=== PATIENT | female | born 1955 | race Caucasian/White ===

== ENCOUNTER → 2017-06-04 | Outpatient (CLI) | payer OTHER ==
[~2017-06-04] MED LIST: ASPI-715 PO; ATR10 PO; EZET10TA41 PO; FENO145T PO; FISH OIL1 CAP PO; FLUT10SP NS; IPRA15SP7 NS; LANS30CA63 PO; LANS30TA12 PO; LEVO-85 PO; LEVO50TA80 PO; METH4TAB66 PO; NEXIUM; NITR0.3T6 SL; OLOP30.53 NS; OXYC-865 PO; PSEU-287 PO
--- NOTE | 2017-06-05 17:32 | RADIOLOGY IMAGING REPORT ---
FACILITY: PATIENT NAME: ABIDA MARTÍNEZ : [id number] MR: [id number] V: [id number] EXAM DATE: ORDERING PHYSICIAN: JOY FLORENCE TECHNOLOGIST: Ladonna Rodriguez PROCEDURE:BILATERAL DIGITAL SCREENING MAMMOGRAM WITH CAD ASSISTED INTERPRETATION & 3D TOMOSYNTHESIS COMPARISON:Prior mammograms 06/01/16, 05/25/15, 05/15/14, 05/23/13, 05/19/13, 05/16/12. INDICATIONS:SCREENING FINDINGS: Moderately heterogeneous fibroglandular tissue is seen throughout the breasts. The parenchymal pattern has remained stable allowing for difference in mammographic technique & patient positioning. There is no evidence of malignant appearing mass, malignant appearing calcifications or other secondary sign of malignancy in either breast. DIAGNOSTIC CATEGORY 1--NEGATIVE. RECOMMENDATIONS: ROUTINE MAMMOGRAM AND CLINICAL EVALUATION. IMPRESSION: BIRADS 1: Negative No significant abnormality is seen Dictated by: Corrina Linn M.D. on 06/05/2017 at 11:29 Transcribed by: RODNEY on 06/05/2017 at 12:50 Approved by: Corrina Linn M.D. on 06/05/2017 at 17:31 [facility]
== END ==
LOC: MAMO 02:34
PROVIDERS: ATTEND Obstetrics & Gynecology
DX: Z12.31 Encounter for screening mammogram for malignant neoplasm of breast (principal)
CPT/HCPCS: 77063; 77067

== ENCOUNTER → 2017-08-27 | Outpatient (CLI) | payer OTHER ==
[~2017-08-27] MED LIST changes: -FENO145T PO; +FENO145T36 PO; -PSEU-287 PO; +PSEU120T69 PO
--- NOTE | 2017-08-27 13:48 | RADIOLOGY IMAGING REPORT ---
FACILITY: [facility] PATIENT NAME: Selena Tubbs : 1955 MR: [id number] V: [id number] EXAM DATE: ORDERING PHYSICIAN: AMY ROSA TECHNOLOGIST: Location: [facility] [place] Patient: Selena Tubbs : 1955 Visit/Account:[id number] Date of Sevice: 08/27/2017 ABD SINGLE ORGAN/QUAD/FOLLOWUP HISTORY: Pain in right lower quadrant radiating from thigh COMPARISON: None. FINDINGS: Right lower quadrant was imaged sonographically demonstrating no evidence of a focal hernia. A mass lesion nor abnormal collection were not demonstrated. The appendix was not seen. IMPRESSION: Unremarkable right lower quadrant ultrasound. If Acute appendicitis is of clinical concern CT of ab domen pelvis recommended Report Dictated By: Corrina Linn MD at 08/27/2017 1:42 PM Report E-Signed By: Corrina Linn MD at 08/27/2017 1:44 PM WSN:[id number]
== END ==
LOC: US 07:18
PROVIDERS: ATTEND Physician Assistant Medical
DX: R10.31 Right lower quadrant pain (principal)
CPT/HCPCS: 76705

== ENCOUNTER → 2017-08-30 | Outpatient (CLI) | payer OTHER ==
[~2017-08-30] MED LIST changes: +OMEP40CA48 PO
== END ==
LOC: LAB 09:36
PROVIDERS: ATTEND Otolaryngology
DX: J30.9 Allergic rhinitis, unspecified (principal)
CPT/HCPCS: 36415; 86003

== ENCOUNTER → 2017-09-13 | Outpatient (CLI) | payer OTHER ==
[~2017-09-13] MED LIST changes: +IOPAMIDOL 76% 75 ML INFUS BTL 75 ML ONE
--- NOTE | 2017-09-13 14:16 | RADIOLOGY IMAGING REPORT ---
FACILITY: [facility] - [place] PATIENT NAME: Selena Tubbs : 1955 MR: [id number] V: [id number] EXAM DATE: ORDERING PHYSICIAN: AMY ROSA TECHNOLOGIST: Location: [facility] - [place] Patient: Selena Tubbs : 1955 Visit/Account:[id number] Date of Sevice: 09/13/2017 ABDOMEN/PELVIS W/WO CONTRAST HISTORY: Right lower quadrant pain. TECHNIQUE: CT abdomen and pelvis without and with intravenous contrast. One of the following dose optimization techniques was utilized in the performance of this exam: Autom ated exposure control; adjustment of the mA and/or kV according to the patient's size; or use of an i terative reconstruction technique. Specific details can be referenced in the facility's radiology C T exam operational policy. CONTRAST: 75 mL Isovue-370 COMPARISON: None. FINDINGS: Visualized lung bases: Mild bibasilar atelectasis and/or scarring. Hepatobiliary: Negative. Spleen: Negative. Adrenals: Negative. Pancreas: Negative. Kidneys/: Possible punctate nonobstructing calculus within the inferior pole of the right kidney m easuring less than 1 mm. 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 Uterus is surgically absent. Otherwise negative. GI: Negative. Appendix is unremarkable. Vessels/spaces/nodes: Nonspecific subcentimeter inguinal and iliac chain lymph nodes. No pathologic ally enlarged lymph nodes are identified. Mild atherosclerosis. There is minimal haziness of the root of the jejunal mesentery along with numerous but normal sized l ymph nodes. Bones/soft tissues: Mild degenerative disc disease at L5-S1. Lytic focus within the L2 vertebral kiarra dy, likely representing a hemangioma. IMPRESSION: 1. No acute findings. 2. Mild haziness of the root of the jejunal mesentery along with numerous but normal sized lymph nod es. 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 3. Additional incidental/chronic findings, as above. Report Dictated By: Jaziel Ocampo MD at 09/13/2017 2:04 PM Report E-Signed By: Jaziel Ocampo MD at 09/13/2017 2:11 PM WSN:[id number]
== END ==
LOC: CT 00:28
PROVIDERS: ATTEND Physician Assistant Medical
DX: J98.11 Atelectasis (principal); N20.0 Calculus of kidney; I25.10 Atherosclerotic heart disease of native coronary artery without angina pectoris; M47.897 Other spondylosis, lumbosacral region; K65.4 Sclerosing mesenteritis
CPT/HCPCS: 36415; 74178; 82565; Q9967

== ENCOUNTER → 2017-11-14 | Outpatient (CLI) | payer OTHER ==
[~2017-11-14] MED LIST changes: +EPIN0.3P15 IM; -IOPAMIDOL 76% 75 ML INFUS BTL 75 ML ONE; +MONT10TA PO
--- NOTE | 2017-11-14 16:04 | RADIOLOGY IMAGING REPORT ---
FACILITY: [facility] PATIENT NAME: Selena Tubbs : 1955 MR: [id number] V: [id number] EXAM DATE: ORDERING PHYSICIAN: SARAY SHEA TECHNOLOGIST: Location: [facility] - [place] Patient: Selena Tubbs : 1955 Visit/Account:[id number] Date of Sevice: 11/14/2017 SINUSES MIN 3 VIEWS INDICATION: Headache. Chronic sinusitis. COMPARISON: None available. FINDINGS: Lateral, wells view, and Chacko views of the skull were obtained. The maxillary and ethmoid air cells appear well aerated bilaterally. No air-fluid levels. Frontal sin uses may be mildly underpneumatized but no air-fluid levels are seen. Sphenoid sinuses also appear we ll aerated. No acute abnormality seen. IMPRESSION: 1. Patent paranasal sinuses as described above with no air-fluid level identified. If there is cont inued clinical concern, consider computed tomography for further assessment. Report Dictated By: Dawson Vu at 11/14/2017 3:57 PM Report E-Signed By: Dawson Vu at 11/14/2017 3:59 PM WSN:[id number]
== END ==
LOC: RAD 14:35
PROVIDERS: ATTEND Otolaryngology
DX: J32.9 Chronic sinusitis, unspecified (principal)
CPT/HCPCS: 70220

== ENCOUNTER 2017-11-23 14:33 | Outpatient (RCR) | payer OTHER ==
[2017-11-26] MEDS ORDERED: IOPAMIDOL 76% 75 ML INFUS BTL 75 ML ONE (13:48)
--- NOTE | 2017-11-26 16:07 | RADIOLOGY IMAGING REPORT ---
FACILITY: [facility] - [place] PATIENT NAME: Selena Tubbs : 1955 MR: [id number] V: [id number] EXAM DATE: ORDERING PHYSICIAN: JOY GOMEZ TECHNOLOGIST: Location: [facility] Patient: Selena Tubbs : 1955 Visit/Account:[id number] Date of Sevice: 11/26/2017 EXAMINATION: CT head without IV contrast CT head with IV contrast HISTORY: Classic migraine. COMPARISON: None. TECHNIQUE: Contiguous axial images were obtained from the skull base to the vertex before and after IV contrast. Sagittal and coronal reformatted images are also submitted. CONTRAST: 75 mL of IV Isovue-370. One of the following dose optimization techniques was utilized in the performance of this exam: Autom ated exposure control; adjustment of the mA and/or kV according to the patient's size; or use of an i terative reconstruction technique. Specific details can be referenced in the facility's radiology C T exam operational policy. FINDINGS: Brain volume: Normal. Ventricles: Normal. Acute ischemic changes: None. Hemorrhage: No acute intracranial hemorrhage. Masses/edema: None. Enhancement: Normal. Ortiz-white: Negative. White matter: Normal. Vessels: Negative. Extra-axial: Negative. Calvarium/scalp: Negative. Skull base/visualized face: Negative. Visualized sinuses/orbits: Negative. IMPRESSION: Normal enhanced head CT. No intracranial mass lesion or hemorrhage. No CT evidence of acute infarct . Report Dictated By: Daisha Amezquita MD at 11/26/2017 4:01 PM Report E-Signed By: Daisha Amezquita MD at 11/26/2017 4:04 PM WSN:[id number]
== END 2017-12-28 ==
LOC: CT 14:33
PROVIDERS: ATTEND Family Medicine
DX: G43.109 Migraine with aura, not intractable, without status migrainosus (principal)
CPT/HCPCS: 36415; 70470; 82565; Q9967

== ENCOUNTER → 2018-06-14 | Outpatient (CLI) | payer OTHER ==
[~2018-06-14] MED LIST changes: +ACYC-50 PO; +ESTR42.5 PV
--- NOTE | 2018-06-14 15:31 | RADIOLOGY IMAGING REPORT ---
[place] [facility] [place] NAME: Selena Tubbs : 1955 MR: [id number] V: [id number] EXAM DATE: ORDERING PHYSICIAN: OJSE LUIS HERMAN TECHNOLOGIST: Location: [facility] Patient: Selena Tubbs : 1955 Visit/Account:[id number] Date of Sevice: 06/14/2018 DEXA Scan Clinical history: Postmenopausal screening. Comparison: DEXA scan from 04/30/2009. LUMBAR SPINE: The bone mineral density (BMD) measured from L1-L4 correlates with a Z-score of 3.4 and a T-score of 2.1 which is Normal as defined by the World Health Organization. The corresponding risk of fracture in the lumbar spine is Not increased compared with a young adult reference population. This value hameed s decrease by 5.2 % since the prior study. More than 5% change is considered significant. HIP: Bone mineral density (BMD) measured in the LEFT total hip region correlates with a Z-score 0.6 and a T-score of -0.4 which is normal as defined by the World Health Organization. The corresponding risk of fracture in the hip is Not i ncreased compared to a young adult reference population. This value has decrease by 6.3 % since the p rior study. More than 5% change is considered significant. T score left femoral neck -0.8 Bone mineral density (BMD) measured in the Femoral Neck region measures 0.926 g/cm?. IMPRESSION: 1. Lumbar spine: Normal. There has been 5.2% decrease in the bone mineral density since the previou s exam. 2. Left Total Hip: Normal. There has been 6.3% decrease in the bone mineral density since the previ ous exam. 3. Femoral Neck: Bone Mineral Density is 0.926 g/cm? The next DEXA scan of this patient should include the following sites: L1-L4 and the left hip. FRAX? WHO Fracture Risk Assessment Tool link: <http://www.shef.ac.uk/FRAX/tool.jsp?locationValue=9> PLEASE NOTE: 1) The World Health Organization defines low BMD as follows: T-score Normal > -1 Osteopenia < -1 and > -2.5 Osteoporosis < -2.5 without fractures Established osteoporosis < -2.5 with fractures 2) In general, you may wish to consider: Diagnosis Treatment Follow-up DEXA Normal BMD Prevention 2-3 years Osteopenia Prevention/therapy 1-2 years Osteoporosis Therapy Yearly 3) Fracture risk estimated from the T-score is more accurate for vertebral fractures (often spontane ous) than for hip fractures. Report Dictated By: Corrina Linn MD at 06/14/2018 3:26 PM Report E-Signed By: Corrina Linn MD at 06/14/2018 3:27 PM WSN:[id number]
--- NOTE | 2018-06-17 10:35 | RADIOLOGY IMAGING REPORT ---
FACILITY: [facility] - [place] PATIENT NAME: ABIDA MARTÍNEZ : [id number] MR: [id number] V: [id number] EXAM DATE: ORDERING PHYSICIAN: JOSE LUIS HERMAN TECHNOLOGIST: Ladonna Rodriguez PROCEDURE:BILATERAL DIGITAL SCREENING MAMMOGRAM WITH CAD ASSISTED INTERPRETATION & 3D TOMOSYNTHESIS COMPARISON:Prior mammograms 06/04/17, 06/01/16, 05/25/15, 05/15/14, 05/23/13, 05/19/13. INDICATIONS:screening FINDINGS: The breasts are heterogeneously dense which can obscure small masses. The parenchymal pattern has remained stable allowing for difference in mammographic technique & patient positioning. There is no evidence of malignant appearing mass, malignant appearing calcifications or other secondary sign of malignancy in either breast. DIAGNOSTIC CATEGORY 1--NEGATIVE. RECOMMENDATIONS: ROUTINE MAMMOGRAM AND CLINICAL EVALUATION. IMPRESSION: BIRADS 1: Negative. No significant abnormality is seen. Dictated by: Corrina Linn M.D. on 06/14/2018 at 15:54 Transcribed by: RODNEY on 06/14/2018 at 16:02 Approved by: Corrina Linn M.D. on 06/17/2018 at 10:34 [facility]
== END ==
LOC: MAMO 04:18
PROVIDERS: ATTEND Obstetrics & Gynecology
DX: Z13.820 Encounter for screening for osteoporosis (principal); Z12.31 Encounter for screening mammogram for malignant neoplasm of breast; Z78.0 Asymptomatic menopausal state
CPT/HCPCS: 77063; 77067; 77080

== ENCOUNTER → 2018-09-24 | Outpatient (CLI) | payer OTHER | LOC: LAB 14:07 | PROVIDERS: ATTEND Physician Assistant | DX: J30.9 Allergic rhinitis, unspecified (principal) | CPT/HCPCS: 36415; 86003 ==